=== PATIENT | female | born 1995 | race Two or more races ===

== ENCOUNTER 2024-04-29 11:40 | Inpatient (IN) | payer BC ==
[~2024-04-29] VITALS: Ht 172.7 cm; Wt 75.3 kg
[2024-04-29] MEDS ORDERED: LIDOCAINE 2%HCL (LOCAL ANESTH.) INJ 20ML MDV IJ PRN (11:45)
[2024-04-29] MEDS ORDERED: BUTORPHANOL TARTRATE 2 MG/1 ML VIAL IV PRN ×2 (11:45)
[2024-04-29] MEDS ORDERED: TERBUTALINE SULFATE 1 MG/ML 1ML VIAL SC PRN (12:00)
[2024-04-29] MEDS ORDERED: PENICILLIN G POT 5MIL/D5 50ML 50 ML IV ONE (12:00)
[2024-04-29 12:40] LABS: Alanine Aminotransferase 18 U/L (7-40); Alkaline Phosphatase 253 U/L (46-116); Anion Gap 14 (5-15); Aspartate Aminotransferase 20 U/L (13-40); BUN/Creatinine Ratio 9.3 (10.0-20.0); Blood Urea Nitrogen 8 mg/dL (9-23); Calcium 9.5 mg/dL (8.7-10.4); Carbon Dioxide 16 mmol/L (20-30); Chloride 106 mmol/L (98-107); Glucose 86 mg/dL (74-106); Potassium 3.2 mmol/L (3.5-5.1); Sodium 136 mmol/L (136-145)
[2024-04-29 12:41] LABS: Bilirubin, Total 0.4 mg/dL (0.2-1.0); Total Protein 6.9 g/dL (5.7-8.2)
[2024-04-29 12:46] LABS: INR 0.99 (0.9-1.15); Partial Thromboplastin Time 25.4 SEC (24.5-34.5); Prothrombin Time 10.5 sec (9.3-11.8)
[2024-04-29] MEDS: LACT. RINGERS/OXYTOCIN 20UNITS 500 ML IV ONE ×2 (12:51→12:52)
[2024-04-29] MEDS: PHISODERM TOP SOLN 240ML BTL TOP PRN (12:52)
[2024-04-29] MEDS: LACTATED RINGER'S 1,000 ML IV SCH (12:52)
[2024-04-29] MEDS: DERMOPLAST 60ML BOTTLE TOP PRN (12:52)
[2024-04-29] MEDS: WITCH HAZEL-GLYCERIN PAD TOP PRN (12:52)
[2024-04-29 13:07] LABS: Eosinophils # (auto) 0.1 10 ^3/uL (0-0.8); Eosinophils % (auto) 0.3 % (0.0-7.0); Lymphocytes # (auto) 1.8 10 ^3/uL (0.4-5.4); Mean Corpuscular Hemoglobin 25.2 pg (28.0-32.0); Monocytes # (auto) 0.7 10 ^3/uL (0-1.3)
[2024-04-29 13:10] LABS: Basophils # (auto) 0 10 ^3/uL (0-0.2); Basophils % (auto) 0.2 % (0.0-2.0); Hematocrit 32.3 % (36.0-46.0); Hemoglobin 10.5 g/dL (12.2-16.2); Lymphocytes % (auto) 10.6 % (10.0-50.0); Mean Corpuscular Hgb Conc. 32.6 g/dL (32.0-36.0); Mean Corpuscular Volume 77.3 fL (80.0-100.0); Neutrophils # (auto) 14.7 10 ^3/uL (1.6-8.6); Neutrophils % (auto) 84.9 % (37.0-80.0); Platelet Count (auto) 267 10^3/uL (140-450); Red Blood Cells 4.18 10^6/uL (4.0-5.20); Red Cell Distribution Width 14.7 % (11.8-14.3); White Blood Cell 17.3 10^3/uL (4.4-10.8)
[2024-04-29] MEDS ORDERED: ONDANSETRON ODT 4 MG TAB PO PRN (14:30)
[2024-04-29] MEDS: IBUPROFEN 600 MG TAB PO PRN (15:50)
[2024-04-29] MEDS ORDERED: PENICILLIN G POTASSIUM 2,500,000 UNITS in D5W 5% 50 ML IV SCH (16:00)
[2024-04-29 16:30] VITALS: BP 133/74; PULSE 68; RESP 18; TEMP 98.7; O2SAT 99
[2024-04-29 18:38] LABS: Urine Bacteria FEW /hpf (None Seen); Urine Blood 3+ /uL (Negative); Urine Clarity Turbid (Clear); Urine Protein, UAD 1+ (Negative); Urine Specific Gravity 1.006 (1.001-1.035); Urine Urobilinogen Normal (Negative); Urine WBC 71 /hpf (0 - 5); Urine pH 6.5 (5.0-9.0)
[2024-04-29 18:39] LABS: Urine Color Pink (Yellow)
[2024-04-29 19:00] VITALS: BP 117/67; PULSE 95; RESP 16; TEMP 98.4; O2SAT 97
[2024-04-29] MEDS: DOCUSATE SOD 100 MG CAP PO SCH (19:49)
[2024-04-29 19:52] LABS: Amphetamine Screen, Urine Neg (NEGATIVE); Barbiturate Scree,Urine Neg (NEGATIVE); Benzodiazephine Screen, Urine Neg (NEGATIVE); Cocaine Screen, Urine Neg (NEGATIVE); Opiate Scree,Urine Neg (NEGATIVE); Phencyclidine Screen, Urine Neg (NEGATIVE)
[2024-04-29 19:53] LABS: Cannabinoid Screen, Urine Neg (NEGATIVE)
[2024-04-29 22:45] VITALS: BP 109/70; PULSE 83; RESP 16; TEMP 98; O2SAT 100
[2024-04-29] MEDS: ACETAMINOPHEN 325 MG TAB PO PRN (22:56)
[2024-04-30 03:05] VITALS: BP 124/64; PULSE 82; RESP 18; TEMP 97.8; O2SAT 96
[2024-04-30 06:06] LABS: RPR Non Reactive (Non Reactive)
[2024-04-30 07:30] VITALS: BP 121/73; PULSE 74; RESP 18; TEMP 98; O2SAT 97
[2024-04-30 11:30] VITALS: BP 118/76; PULSE 76; RESP 16; TEMP 98.3; O2SAT 98
[2024-04-30 14:45] VITALS: BP 112/68; PULSE 74; RESP 16; TEMP 98.3; O2SAT 98
[2024-04-30 15:39] VITALS: TEMP 97.9
== END 2024-04-30 15:39 | disposition home or self-care (01) | DRG 807 ==
LOC: LDRP 11:40
PROVIDERS: ADMIT Obstetrics & Gynecology; ATTEND Obstetrics & Gynecology
PROC: 10E0XZZ Delivery of Products of Conception, External Approach (ICD-10-PCS; principal; 2024-04-29)
PROC: 0HQ9XZZ Repair Perineum Skin, External Approach (ICD-10-PCS; 2024-04-29)
DX: O99.344 Other mental disorders complicating childbirth (principal); Z37.0 Single live birth; O70.0 First degree perineal laceration during delivery; Z3A.37 37 weeks gestation of pregnancy; F41.9 Anxiety disorder, unspecified; F32.A Depression, unspecified
CPT/HCPCS: 36415; 59025; 59409; 80053; 80307; 81001; 85025; 85610; 85730; 86592; 86803; 86850; 86900; 86901; 94760; 96360; 96361; 96365; 96366; G0378; J2590; J7060